=== PATIENT | male | born 2000 | race Caucasian/White ===

== ENCOUNTER 2024-12-07 16:59 | Emergency (ER) | payer SELFPAY ==
--- OUTSIDE RECORDS SUMMARY | 2021-01-06 10:00 | XMS_ITS | Continuity of Care Document ---
Author Organization [facility] Address [address] [place] [address] Phone Care Team Providers Care Tool Technician Name Role Phone Durington DDS, Gordon Unavailable Unavailable Allergies, Adverse Reactions, Alerts Substance Reaction Status Criticality No Known Allergies Active No Inform ation No Known Allergies Active No Inform ation Medications Medication Instructions Dosage Effective Dates (start - stop) Status Comments No Drug Therapy Prescribed Procedures Procedure Date Amalgam - Two Surfaces, Primary Or Perma nent Treatment Completed Periodic Oral Evaluation- Established Pa tient Caries risk assessment & documentation, high risk Intraoral - Periapical First Radiographi c Image Intraoral - Periapical Each Additional R adiographic Image Intraoral - Periapical Each Additional R adiographic Image Bitewings - Four Radiographic Images Dec Prophylaxis - Adult Topical Application Of Fluoride Varnish Sealant Exclusion Per Tooth Sealant Exclusion Per Tooth Sealant Exclusion Per Tooth Sealant Exclusion Per Tooth Sealant Exclusion Per Tooth Sealant Exclusion Per Tooth Sealant Exclusion Per Tooth Sealant Exclusion Per Tooth Resin - Based Composite - Two Surfaces, Anterior Resin - Based Composite - Two Surfaces, Anterior Intraoral - Periapical First Radiographi c Image Adjustment Of Recently Placed Restoratio n Resin - Based Composite - Two Surfaces, Posterior Adjustment Of Recently Placed Restoratio n Resin - Based Composite - Two Surfaces, Posterior Resin - Based Composite - Three Surfaces , Posterior Periodic Oral Evaluation- Established Pa tient Caries risk assessment & documentation, high risk Intraoral - Periapical First Radiographi c Image Intraoral - Periapical Each Additional R adiographic Image Bitewings - Four Radiographic Images Jun Prophylaxis - Adult Topical Application Of Fluoride Varnish Sealant Exclusion Per Tooth Sealant Exclusion Per Tooth Sealant Exclusion Per Tooth Sealant Exclusion Per Tooth Sealant Exclusion Per Tooth Sealant Exclusion Per Tooth Sealant Exclusion Per Tooth Sealant Exclusion Per Tooth Interim Caries Arresting Medicament Appl ication Resin - Based Composite - Two Surfaces, Anterior Resin - Based Composite - Two Surfaces, Anterior Resin - Based Composite - Two Surfaces, Anterior Periodic Oral Evaluation- Established Pa tient Intraoral - Periapical First Radiographi c Image Intraoral - Periapical Each Additional R adiographic Image Bitewings - Four Radiographic Images Sep Panoramic Radiographic Image Prophylaxis - Adult Topical Application Of Fluoride Varnish Caries risk assessment & documentation, high risk Sealant Exclusion Per Tooth Sealant Exclusion Per Tooth Sealant Exclusion Per Tooth Sealant Exclusion Per Tooth Sealant Exclusion Per Tooth Sealant Exclusion Per Tooth Sealant Exclusion Per Tooth Sealant Exclusion Per Tooth Periodic Oral Evaluation- Established Pa tient Caries risk assessment & documentation, high risk Dental Sealant Exclusion Bitewings - Four Radiographic Images Mar Prophylaxis - Adult Topical Application Of Fluoride Varnish Oral Hygiene Instruction Amalgam - Three Surfaces, Primary Or Per manent Amalgam - Two Surfaces, Primary Or Perma nent Treatment Completed Amalgam - Three Surfaces, Primary Or Per manent Amalgam - Two Surfaces, Primary Or Perma nent Resin - Based Compostive - One Surface, Posterior Amalgam - Two Surfaces, Primary Or Perma nent Periodic Oral Evaluation- Established Pa tient Intraoral - Periapical First Radiographi c Image Intraoral - Periapical Each Additional R adiographic Image Bitewings - Four Radiographic Images Aug Prophylaxis - Adult Topical Application Of Fluoride Varnish Amalgam - Two Surfaces, Primary Or Perma nent Amalgam - Three Surfaces, Primary Or Per manent Inhalation Of Nitrous Oxide/ Analgesia, Anxiolysis Advance Directives Directive Yes / No Effective Date File Name No Information Encounters Encounter Description Practice Location Reason(s) For Visit Diagnoses Date Provider Providers Copied on Encounter [facility], [address] [place], [place], [id number], [place] tel:[phone] [facility] No Information Ramilabryan Gordon. [address], [place], [id number], [place]. tel:[phone] Referring Provider: Heidi Ramilabryan, [address] [place], [address]. tel:[phone] [facility], [address] , [place], [place], [id number], tel:[phone] [facility] No Information [facility] [address] [place] [address], [id number], . tel:[phone] Referring Provider: Gordon [address], [address]. tel:[phone] lting Provider: Zena Mckoy, [address] [place] [address], [address]. tel:[phone] [facility], [address] [place], [place], [id number], tel:[phone] [facility] Dental caries, unspecified [facility] [address] [place] [address], [id number], . tel:[phone] Referring Provider: Gordon [facility], [address] [place] [address], [id number]. tel:[phone] [facility], [address] [place], [place], [id number], tel:[phone] [facility] Encounter for dental exam and cleaning w abnormal findings [facility] [address] [place] [address], [id number], . tel:[phone] Referring Provider: Gordon [address], [address]. tel:[phone] [facility], [address] , [place], [place], [id number], tel:[phone] [facility] Dental caries, unspecified [facility] [address] [place] [address], [id number], . tel:[phone] Referring Provider: Gordon [address], [address]. tel:[phone] [facility], [address] [place], [place], [id number], tel:[phone] [facility] Encounter for dental exam and cleaning w abnormal findings [facility] [address] [place] [address], [id number], . tel:[phone] Referring Provider: Gordon [facility], [address] [place] [address], [address]. tel:[phone] [facility], [address] [place], [place], [id number], tel:[phone] [facility] Dental caries, unspecified [facility] [address] [place] [address], [id number], . tel:[phone] Referring Provider: Gordon [facility], [address] [place] [address], [id number]. tel:[phone] [facility], [address] [place], [place], [id number], tel:[phone] [facility] Dental caries, unspecified [facility] [address] [place] [address], [id number], . tel:[phone] Referring Provider: Gordon [facility], [address] [place] [address], [address]. tel:[phone] [facility], [address] [place], [place], [id number], tel:[phone] [facility] Encounter for dental exam and cleaning w abnormal findingsDeposit s [accretions] on teeth Jun- [facility] [address] [place] [address], [id number], . tel:[phone] Consulting Provider: Zena Mckoy, [address] [place] [address], [id number]. tel:[phone] [facility], [address] [place], [place], [id number], tel:[phone] Family [facility] Dental caries, unspecified July- 0 Chase Josephine. [address] [place] [address], [id number], [place]. tel:[phone] Referring Provider: Josephine Chase, [address] [place] [address], [address]. tel:[phone] [facility], [address] , [place], [place], [id number], [place] tel:[phone] [facility] caries, unspecified [facility]. [address] [place] [address], [id number], [place]. tel:[phone] [facility], [address] , [place], [place], [id number], tel:[phone] [facility] Encounter for dental exam and cleaning w abnormal findingsDeposit s [accretions] on teeth 9 [place] Nhan. [address] [place] [address], [id number], [place]. tel:[phone] Consulting Provider: Janice Morgan, [address] [place] [address], [id number]. tel:[phone] [facility], [address] [place], [id number], [place] tel:[phone] [facility] Encounter for dental exam and cleaning w abnormal findingsDeposit s [accretions] on teeth 9 Chase Josephine. [address] [place] [address], [id number], [place]. tel:[phone] [facility], [address] [place], [id number], [place] tel:[phone] [facility] Dental caries, unspecifiedEnco unter for dental exam and cleaning w/o abnormal findings 8 Chase Josephine. [address] [place] [address], [id number], [place]. tel:[phone] [facility], [address] [place], [place], [id number], tel:[phone] [facility] Dental caries, unspecified 8 Chase Josephine. [address] [place], [place], [id number], [place]. tel:[phone] [facility], [address] , [place], [place], [id number], tel:[phone] [facility] Dental caries, unspecified 8 Chase Josephine. [address] [place], [place], [id number], [place]. tel:[phone] [facility], [address] , [place], [place], [id number], [place] tel:[phone] [facility] Dental caries, unspecified 8 Chase Josephine. [address] [place], [place], [id number], [place]. tel:[phone] [facility], [address] , [place], [place], [id number], [place] tel:[phone] [facility] Encounter for dental exam and cleaning w abnormal findingsDeposit s [accretions] on teeth 8 Chase Josephine. [address] [place], [place], [id number], [place]. tel:[phone] [facility], [address] , [place], [place], [id number], tel:[phone] [facility] Dental caries, unspecified 7 Chase Josephine. [address] [place], [place], [id number], [place]. tel:[phone] [facility], [address] , [place], [place], [id number], [place] tel:[phone] [facility] No Information 1-190 0 Conversion Conversion. . Family History Family Member Type Diagnosis Age At Onset No Information Immunizations Vaccine Date Status Comments Tdap administered Source: New Imm unization Record Meningococcal administered Source: New Im munization Record Meningococcal administered Source: New Im munization Record Meningococcal administered Source: New Im munization Record Payers Payer name Insurance type Covered green party ID Alli sheridan(s) [employer] [facility] [facility] [id number] Social History Type Description Quantity Date Captured Comments Sex Male Smoking Status No Information Sexual Orientation Straight or heterosexual Jun Gender Identity Male Chief Complaint And Reason For Visit No Information Reason For Referral Reason For Referral No Information History Of Present Illness Encounter Date Complaint History Of Prese nt Illness No Information Functional Status Date Functional Assessmen t No Information Medications Administered Medication Instructions Dosage Effective Dates (start - stop) Status Comments No Drug Therapy Prescribed Instructions Date Instruction Additional Infor mation No Information Assessments Type Assessment Date No Information Patient Care Teams Name Effective Dates (start - stop) Status Members No Information
--- NOTE | ~2024-12-07 | XR_ITS ---
EXAMINATION: XR chest 2V, 12/07/2024 17:32 CDT HISTORY: chest pain, left sholder pain COMPARISON: No comparisons available. Technique: 2 views obtained. Findings: The lungs are clear, no effusion. No pneumothorax. Heart is normal size. Mediastinal and hilar contours are within normal limits. Bony thorax no acute abnormality. Impression: No acute cardiopulmonary abnormality. Reviewed, dictated and finalized at location P. Impression: No acute cardiopulmonary abnormality.
--- NOTE | 2024-12-07 17:01 | ECG_ITS ---
Test Date: 2024-12-07 17:05:56 Measurements Intervals [place] Rate: 89 P: 69 [place]: 123 QRS: 87 QRSD: 90 T: 49 QT: 342 QTc: 418 Interpretive Statements SINUS RHYTHM NORMAL ECG No previous ECG available for comparison Electronically Signed On 12-07-2024 19:32:57 CDT by Dwayne Holder D.O.
--- OUTSIDE RECORDS SUMMARY | 2024-12-07 17:02 | XMS_ITS | Clinical Summary ---
Author Organization [facility] Address [address] [place] [address] Phone Care Team Providers Care Tinner Automatic Name Role Phone Talisha Connolly DO Primary Care Provider [phone] Allergies No known active allergies Medications No known medications Immunizations Immunization Administration Dates Next Due DTaP 10/09/2005, 4,02/13/2002,12/29,2001 Hep A, Adult 10/03/2014 Hep A, Unspecified 10/09/2005 Hib / Hep B 04/13/2003,2001,2001 IPV 10/09/2005, 2,2001,10/10 Influenza, High Dose Seasona l, Preservative Free 01/07/2009 Influenza, live, intranasal, quadrivalent 02/09/2013,12/24/2011,01/21/2011 Influenza, seasonal, injectable 01/29/20 10,12/26/2009,02/20/2008,01/18 MMR 10/09/2005,08/07/2002 Meningococcal MCV4O 11/08/2019 Meningococcal MCV4P 10/03/2014 Pneumococcal Conjugate PCV 7 08/07/2002,12/30/19 02 Tdap 10/03/2014 Varicella 10/03/2014,08/07/2002 Family History Medical History Relation Name Comments Bipolar disorder Other Grandparent Depression Other Grandparent Diabetes Other Grandparent Lymphoma Other Grandparent Relation Name Status Comments Other Social History Tobacco Use Types Packs/Day Years Used Date Smoking Tobacco: Never Smokeless Tobacco: Never Tobacco Cessation:Counseling Given: Not Answered Alcohol Use Standard Drinks/Week Comments Never 0 (1 standard drink = 0.6 oz pur e alcohol) Sex and Gender Information Value Date Recorded Sex Assigned at Male 01/12/2022 8:46 PM PLATE GRINDER Legal Sex Male 8:46 PM PLATE GRINDER Gender Identity Not on file Sexual Orientation Not on file Last Filed Vital Signs Vital Sign Reading Time Taken Comments Blood Pressure 126/80 02/04/2022 12:36 PM PLATE GRINDER Pulse - - Temperature - - Respiratory Rate - - Oxygen Saturation - - Inhaled Oxygen Concentration - - Weight 75.4 kg (166 lb 3.6 oz) 02/04/2022 12:36 PM PLATE GRINDER Height 180.9 cm (5' 11.22) 02/04/2022 12:36 PM PLATE GRINDER Body Mass Index 23.04 02/04/2022 12:36 PM PLATE GRINDER Plan of Treatment Health Maintenance Due Date Last Done Comments HIV Screening 2001 Annual Wellness Visit (AWV) 07/30/2003 Depression Screening 2013 HPV Vaccines (1 - Male 3-dose series) 2016 Meningococcal B Vaccine (1 of 2 - Standard) 2017 Hepatitis C Screening 07/30/2019 DTaP/Tdap/Td Vaccines (7 - Td or Tdap) 10/03/2024 10/03/2014, 10/09/2005, 04/13/2003, Additional history exists COVID-19 Vaccine (1 - season) 2024 Influenza Vaccine (#1) 2024 3, 12/24/2011, 01/21/2011, Additional history exists Zoster Vaccines (1 of 2) 07/30/2051 10/03/2014, 04/2002 Pneumococcal Vaccine: Pediatrics (0 to 5 Years) and At-Risk Patients (6 to 64 Years) Aged Out 08/07/2002, 2001 No longer eligibl e based on patient's age to complete this topic HIB Vaccines Completed 04/13/2003, 12/07, 2001 Hepatitis B Vaccines Completed 04/13/2003, 2001, 2001 IPV Vaccines Completed 10/09/2005, 11/2001, 2001, Additional history exists MMR Vaccines Completed 10/09/2005, 08/07/2002 Hepatitis A Vaccines Completed 10/03/2014, 10/10/19 06 Varicella Vaccines Completed 10/03/2014, 08/07/2002 Meningococcal Vaccine Completed 11/08/2019, 015 RSV Vaccine: Pediatrics < 20 Months Aged Out No longer eligible based on patient's age to complete this topic Rotavirus Vaccines Aged Out No longer eligible based on patient's age to complete this topic Insurance HOME STATE Care Teams Tinner Automatic Relationship Specialty Start Date End Date Talisha Connolly DO [address] [place] [address] [address] [place] [id number] PCP - General 03/17/22
[2024-12-07 17:17] VITALS: BP 148/89; PULSE 80; RESP 17; TEMP 37.1; O2SAT 100
[2024-12-07 17:22] LABS: Hematocrit 44.8 % (42.0-52.0); Hemoglobin 15.7 g/dL (14.0-18.0); Immature Granulocyte Percent A 0.3 % (0-0.5); Lymphocytes Absolute Auto 3.31 K/mm3 (0.9-3.2); Mean Corpuscular HGB Conc 35.0 g/dl (32-36); Mean Corpuscular Hemoglobin 31.2 pg (26-34); Mean Corpuscular Volume 88.9 fl (80-100); Nucleated Red Blood Cells Absolute Auto 0.000 K/mm3 (0.0-0.012); Nucleated Red Blood Cells Perc 0.0 % (0.0-0.2); Platelet Count Result 168 k/mm3 (150-375); Red Blood Count 5.04 M/mm3 (4.6-6.20); White Blood Count 8.0 K/mm3 (4.5-10.0)
[2024-12-07 17:31] LABS: Alanine Aminotransferase 22 U/L (6-50); Albumin Level 4.7 g/dL (3.5-5.1); Alkaline Phosphatase 78 U/L (38-126); Anion Gap 10 mmol/L (4-12); Aspartate Amino Transferase 33 U/L (17-59); Bilirubin,Total 1.0 mg/dL (0.2-1.3); Blood Urea Nitrogen 9 mg/dL (9-20); Calcium 8.8 mg/dL (8.4-10.2); Carbon Dioxide 22 mmol/L (22-30); Chloride 103 mmol/L (98-107); Estimated CRCL calculation 117 ml/min; Estimated Glomerular Filt Rate > 60; Glucose 96 mg/dL (65-110); Lipase 232 U/L (23-300); Potassium 3.3 mmol/L (3.4-5.0); Sodium 135 mmol/L (137-145); Total Protein 8.0 g/dL (6.3-8.2)
[2024-12-07 17:35] LABS: INR 1.1; Partial Thromboplastin Time 26.5 Seconds (22.3-36.8); Prothrombin Time 13.7 Seconds (11.1-14.7)
[2024-12-07 17:42] LABS: Troponin I 0.014 ng/mL (0.000-0.034)
--- NOTE | 2024-12-07 18:51 | ED_ITS ---
HPI - Extremity Injury (Upper) General Chief Complaint: Extremity Injury, Upper Stated Complaint: Left shoulder pain, chest pain Time Seen by Provider: 12/07/24 18:13 History of Present Illness HPI narrative: Patient is a 24-year-old male who presents to the ER with left shoulder blade pain that radiates down his left arm and into his chest. He reports he was lifting shingles 2 days ago when he felt a burning in his back. Patient reports his pain is fine during the day but when he lays down flat it worsens. He reports today he started experiencing tightness in his checked so he came in for further evaluation. Patient denies any medical history. He reports he has been taking Tylenol and Mucinex for pain control. Patient reports the pain worsens when he leans forward. Related Data Allergies Allergy/AdvReac Type Severity Reaction Status Date / Time No Known Allergies Allergy Verified 12/07/24 18:58 Review of Systems 2 Review of Systems: All systems reviewed & are unremarkable except as noted in HPI and below Exam 2 Narrative: GENERAL: Well appearing, well-nourished, non-toxic, in no acute distress. HEAD: Normocephalic, atraumatic. NECK: Supple. No adenopathy, no masses. RESPIRATORY: Airway patent, respirations nonlabored. Clear to auscultation bilaterally, no rales, rhonchi, wheezing. CARDIOVASCULAR: Regular rate and rhythm without murmurs, rubs, or gallops. Peripheral pulses 2+ and equal bilaterally. ABDOMINAL: Soft, nontender, nondistended, no hepatosplenomegaly. Normoactive BS. MUSCULOSKELETAL: Moves all extremities. Strength/ROM intact without gross deformities. Tender with palpation to left upper back. SKIN: Warm, dry, normal color. No rashes. NEURO: A&O X3. Speech clear. Cranial nerves II-XII intact. No ataxic movements. PSYCHIATRIC: Appropriate mood and affect. Normal interaction. Course Vital Signs Vital signs: Vital Signs Temperature 37.1 C 12/07/24 17:17 Pulse Rate 80 12/07/24 17:17 Respiratory Rate 17 12/07/24 17:17 Blood Pressure 148/89 H 12/07/24 17:17 Pulse Oximetry 100 12/07/24 17:17 Oxygen Delivery Room Air 12/07/24 17:17 Temperature 37.1 C 12/07/24 17:17 Pulse Rate 73 12/07/24 18:59 Respiratory Rate 14 12/07/24 18:59 Blood Pressure 158/85 H 12/07/24 18:59 Pulse Oximetry 100 12/07/24 18:59 Oxygen Delivery Room Air 12/07/24 18:59 MDM - Extremity Injury (Upper) MDM Narrative Medical decision making narrative: Patient is a 24-year-old male who presents to the ER with left shoulder blade pain that radiates down his left arm and into his chest. He reports he was lifting shingles 2 days ago when he felt a burning in his back. Patient reports his pain is fine during the day but when he lays down flat it worsens. He reports today he started experiencing tightness in his checked so he came in for further evaluation. Patient denies any medical history. He reports he has been taking Tylenol and Mucinex for pain control. Patient reports the pain worsens when he leans forward. Labs Ordered: CBC, CMP, PTT, INR, trops, lipase Imaging Ordered: Chest x-ray Medications Ordered: Toradol 60 mg IM, lidocaine patch Results: Patient's CBC and CMP did not indicate any significant abnormalities. His troponin was negative. Patient's chest x-ray indicates no acute cardiopulmonary abnormalities. His coags were negative. Diagnosis: Left thoracic strain, musculoskeletal strain Risks: HEART Score for Major Cardiac Events from [email or web address] on 12/07/2024 All calculations should be rechecked by clinician prior to use RESULT SUMMARY: 2 points Low Score (0-3 points) Risk of MACE of 0.9-1.7%. INPUTS: History ?> 1 = Moderately suspicious EKG ?> 0 = Normal Age ?> 0 = <45 Risk factors ?> 1 = 1-2 risk factors Initial troponin ?> 0 = <Normal limit Patient Education/Shared MDM: Results of lab work and imaging shared with patient. He endorses improvement of symptoms following medication administration. Patient strongly advised to follow-up with his PCP in the next 2-3 days. He will be discharged home with a prescription for muscle relaxants, anti-inflammatories, and lidocaine patches. Strict return precautions provided. Patient verbalized understanding and is in agreement with plan. Vital signs stable at time of discharge. All questions answered. Differential Diagnosis Differential diagnosis: Likely other (Thoracic strain, STEMI, pneumonia) Lab Data Attestation: I reviewed the patient's lab results. 12/07/24 17:12 12/07/24 17:12 Labs: Lab Results 12/07/24 Range/Units 17:12 WBC 8.0 (4.5-10.0) K/mm3 RBC 5.04 (4.6-6.20) M/mm3 Hgb 15.7 (14.0-18.0) g/dL Hct 44.8 (42.0-52.0) % MCV 88.9 (80-100) fl MCH 31.2 (26-34) pg MCHC 35.0 (32-36) g/dl RDW 11.6 (11.5-14.5) % Plt Count 168 (150-375) k/mm3 MPV 11.2 H (7.4-10.4) fl Immature Gran % (Auto) 0.3 (0-0.5) % Neut % (Auto) 46.4 (45.5-73.1) % Lymph % (Auto) 41.6 (18.3-44.2) % [place] % (Auto) 9.1 H (2.6-8.5) % Eos % (Auto) 2.1 (0-4.4) % Baso % (Auto) 0.5 (0.2-1.2) % Lymph # (Auto) 3.31 H (0.9-3.2) K/mm3 [place] # (Auto) 0.7 H (0.1-0.6) K/mm3 Eos # (Auto) 0.2 (0-0.3) K/mm3 Baso # (Auto) 0.0 (0.0-0.1) K/mm3 Abs Immat Gran (auto) 0.02 (0.00-0.031) K/mm3 Absolute Neuts (auto) 3.7 (1.3-6.7) K/mm3 Absolute Nucleated RBC 0.000 (0.0-0.012) K/mm3 Nucleated RBC % 0.0 (0.0-0.2) % PT 13.7 (11.1-14.7) Seconds INR 1.1 APTT 26.5 (22.3-36.8) Seconds Sodium 135 L (137-145) mmol/L Potassium 3.3 L (3.4-5.0) mmol/L Chloride 103 (98-107) mmol/L Carbon Dioxide 22 (22-30) mmol/L Anion Gap 10 (4-12) mmol/L BUN 9 (9-20) mg/dL Creatinine 0.85 (0.7-1.3) mg/dL Estim Creat Clear Calc 117 ml/min Estimated GFR > 60 (59 - ) Glucose 96 (65-110) mg/dL Calcium 8.8 (8.4-10.2) mg/dL Total Bilirubin 1.0 (0.2-1.3) mg/dL AST 33 (17-59) U/L ALT 22 (6-50) U/L Alkaline Phosphatase 78 (38-126) U/L Troponin I 0.014 (0.000-0.034) ng/mL Total Protein 8.0 (6.3-8.2) g/dL Albumin 4.7 (3.5-5.1) g/dL Lipase 232 (23-300) U/L Imaging Data Attestation: I personally reviewed and interpreted this imaging study as follows: Radiologist's impression: Impressions Chest X-Ray 12/07/24 17:50 Impression: No acute cardiopulmonary abnormality. Discharge Plan Discharge Clinical Impression: Strain of thoracic back region, Strain of other muscles, fascia and tendons at shoulder and upper arm level, left arm, initial encounter Patient Disposition: Home Condition: Stable Instructions: Antibiotic Form, Musculoskeletal Pain (ED) Additional Instructions: Please return to the ER with any worsening symptoms. Follow-up with primary care provider in the next 2-3 days to ensure you are healing. Take all medications as prescribed. You may take Tylenol and ibuprofen together for pain control. If you take a muscle relaxant please do not drive afterwards. You may also use lidocaine patches on the site for pain relief. Patient Language: Dutch Prescriptions: New lidocaine 5 % adhesive patch,medicated 1 patch topical DAILY Qty: 30 0RF Rx Instructions: leave on most painful area for up to 12 hrs ibuprofen 800 mg tablet 800 mg PO TID Qty: 30 0RF cyclobenzaprine 10 mg tablet 10 mg PO TID PRN (Reason: muscle spasm) Qty: 30 0RF Follow-up/Referrals: PHYSICIAN NOT ON STAFF,NONSTAFF [Primary Care Provider] Pedro Vergara MD [Physician, Family Practice] Referral Note: primary care provider Stand Alone Forms: Work/School Release IP Time of Disposition: 19:27
[2024-12-07 18:59] VITALS: BP 158/85; PULSE 73; RESP 14; O2SAT 100
[2024-12-07] MEDS: LIDOCAINE 5% PATCH 1 PATCH TRANSDERM (19:18)
[2024-12-07] MEDS: KETOROLAC (*BKC) 60 MG/2 ML VIAL IM (19:20)
--- OUTSIDE RECORDS SUMMARY | 2024-12-07 19:47 | XMS_ITS | Clinical Summary ---
Author Organization [facility] Address [address] [place] [id number] Phone Care Team Providers Care Meter/Relay Craftsman Name Role Phone Talisha Connolly DO Primary Care Provider [phone] Allergies No known active allergies Medications No [...] Sex Assigned at Male 01/12/2022 8:46 PM WARNING ANALYST Legal Sex Male 8:46 PM WARNING ANALYST Gender Identity Not on file Sexual Orientation Not on file Last Filed Vital Signs Vital Sign Reading Time Taken Comments Blood Pressure 126/80 02/04/2022 12:36 PM WARNING ANALYST Pulse - - Temperature - - Respiratory Rate - - Oxygen Saturation - - Inhaled Oxygen Concentration - - Weight 75.4 kg (166 lb 3.6 oz) 02/04/2022 12:36 PM WARNING ANALYST Height 180.9 cm (5' 11.22) 02/04/2022 12:36 PM WARNING ANALYST Body Mass Index 23.04 02/04/2022 12:36 PM WARNING ANALYST Plan of Treatment Health Maintenance Due Date [...] this topic Insurance [employer] STATE Care Teams Meter/Relay Craftsman Relationship Specialty Start Date End Date Talisha Connolly DO [address] [place] [address] [address] [place] [id number] PCP - General 03/17/22
== END 2024-12-07 19:48 | disposition home or self-care (01) ==
LOC: ANHED 19:45
PROVIDERS: Emergency Medicine; Emergency Provider Registered Nurse
DX: S46.912A Strain of unspecified muscle, fascia and tendon at shoulder and upper arm level, left arm, initial encounter (principal); S29.012A Strain of muscle and tendon of back wall of thorax, initial encounter; X50.0XXA Overexertion from strenuous movement or load, initial encounter
CPT/HCPCS: 36415; 71046; 80053; 83690; 84484; 85025; 85610; 85730; 93005; 96372; 99284; A9270; J1885